=== PATIENT | male | born 1965 | race Caucasian/White ===

== ENCOUNTER 2022-03-16 00:26 | Emergency (ER) | payer BC ==
[~2022-03-16] VITALS: Ht 182.9 cm; Wt 108.2 kg
[~2022-03-16 00:26] MED LIST: ALTACE 10MG TAB10 MG PO; ATORVASTATIN CA20 MG PO; HCTZ 25MG25 MG PO; TERBINAFINE250 MG PO
[2022-03-16 01:24] LABS: BASO # 0.02 K/mm3 (0.02-0.10); EOS # 0.07 K/mm3 (0.04-0.40); EOS % 0.5 % (0.0-4.0); HEMATOCRIT 43.5 % (42.0-52.0); LYMPH# 1.04 K/mm3 (1.50-4.00); MEAN CELL VOLUME 93 fl (78-100); MEAN CORPUSCULAR HEMOGLOBIN 32 pg (27-31); MEAN CORPUSCULAR HGB CONC 35 g/dL (33-37); MONO # 0.99 K/mm3 (0.20-0.80); NEU # 10.77 K/mm3 (1.40-6.50); PLATELET COUNT 179 K/mm3 (130-400); RED CELL DISTRIBUTION WIDTH 12.6 % (11.5-14.5); WHITE BLOOD COUNT 12.9 K/mm3 (4.8-10.8)
[2022-03-16 01:29] LABS: ALBUMIN 4.3 g/dL (3.5-5.0); POTASSIUM 3.6 mmol/L (3.5-5.1)
[2022-03-16 01:30] LABS: CALCIUM 9.6 mg/dL (8.3-10.5)
[2022-03-16 01:32] LABS: TOTAL PROTEIN 6.9 g/dL (6.4-8.3)
[2022-03-16 01:33] LABS: TOTAL BILIRUBIN 0.8 mg/dL (0.2-1.2)
[2022-03-16 01:56] LABS: URINE APPEARANCE HAZY; URINE BILIRUBIN NEGATIVE (NEGATIVE); URINE BLOOD NEGATIVE (NEGATIVE); URINE COLOR YELLOW; URINE GLUCOSE NEGATIVE (NEGATIVE); URINE KETONE 1+ (NEGATIVE); URINE LEUKOCYTE ESTERASE NEGATIVE (NEGATIVE); URINE NITRATE NEGATIVE (NEGATIVE); URINE PROTEIN(semi-quant) TRACE (NEGATIVE); URINE UROBILINOGEN NORMAL (NORMAL); URINE WBC 0-1 /hpf (0-3)
[2022-03-16 03:55] VITALS: BP 147/90
== END 2022-03-16 04:16 | disposition short-term general hospital (02) ==
LOC: ED 00:26
PROVIDERS: Nurse Practitioner Family
DX: K35.80 Unspecified acute appendicitis (principal); D72.829 Elevated white blood cell count, unspecified; Z90.49 Acquired absence of other specified parts of digestive tract; Z28.310 Unvaccinated for COVID-19
CPT/HCPCS: J1170; J2270; J2405; J7030

== ENCOUNTER → 2024-10-29 | Outpatient (CLI) | payer OTHER | LOC: RAD 15:47 | DX: M16.12 Unilateral primary osteoarthritis, left hip (principal); S73.102A Unspecified sprain of left hip, initial encounter ==